=== PATIENT | male | born 1950 | race African-American/Black ===

== ENCOUNTER 2018-07-21 20:17 | Inpatient (IN) ==
[2018-07-21] MEDS ORDERED: SODIUM CHLORIDE 0.9% 1,000 ML IV STA (21:07)
[2018-07-21 21:25] LABS: Hematocrit 43.5 VOL% (42.0-52.0); Hemoglobin 14.5 GM/DL (14.0-18.0); Lymphocytes # 0.1 10*3/uL (1.4-4.0); Lymphocytes % 72.2 % (21.2-54.2); Mean Corpuscular HGB Conc 33.3 GM/DL (32-36); Mean Corpuscular Hemoglobin 28 PG (27-34); Mean Corpuscular Volume 82.7 FL (87-102); Mean Platelet Volume 12.6 FL (9.6-12.0); Monocytes % 11.1 % (1.7-12.7); Neutrophils % 16.7 % (38.7-73.9); Red Blood Count 5.26 MC/CUMM (3.8-5.5); Red Cell Distribution Width 13.4 % (9.3-17.3)
[2018-07-21 21:29] LABS: White Blood Count 0.2 T/CUMM (4-12)
[2018-07-21 21:30] LABS: Platelet Count 26 T/CUMM (130-400)
[2018-07-21 21:31] LABS: INR 1.6; PT Patient Result 16.4 SECS
[2018-07-21 21:48] LABS: Lactic Acid 7.6 MMOL/L (0.4-2.0)
[2018-07-21 21:51] LABS: Alanine Aminotransferase 30 U/L (16-61); Albumin 1.8 G/DL (3.4-5.0); Alkaline Phosphatase 40 U/L (45-117); Aspartate Amino Transferase 23 U/L (0-37); Blood Urea Nitrogen 37 MG/DL (7-18); Calcium 7.5 MG/DL (8.5-10.1); Glucose 140 MG/DL (74-106); Osmolality,Calculated 289.4 MOS/KG (273-304); Potassium 2.9 MMOL/L (3.5-5.1); Sodium 140 MMOL/L (136-145); Total Protein 4.9 G/DL (6.4-8.3)
[2018-07-21 21:52] LABS: Troponin I 0.389 NG/ML (0.00-0.045)
[2018-07-21 22:22] LABS: Apearance,Urine CLOUDY (Clear); Bacteria,Urine Many /HPF (Few); Bilirubin,Urine Negative (Negative); Blood, Urine Small mg/dL (Negative); Glucose,Urine (UA) 50 mg/dL (Negative); Ketones,Urine Negative (Negative); Nitrite,Urine Negative (Negative); Protein,Urine 30 MG/DL; Squamous Epithelial Cell,Urine Occasional /HPF (0-10); Urine Color Amber (Yellow); Urine Specific Gravity 1.015 (1.001-1.035); Urine Urobilinogen < 2.0 EU/DL (0.2-1.0)
[2018-07-21] MEDS ORDERED: POTASSIUM CHLORIDE 20 MEQ TABLET PO STA (22:29)
[2018-07-21 22:30] LABS: Anisocytosis 1+; Lymphocytes 67 % (20-55); Poikilocytosis 1+; Total Cells Counted 100
[2018-07-21] MEDS ORDERED: SODIUM CHLORIDE 0.9% 1,000 ML IV ONE (22:30)
[2018-07-21 22:31] LABS: Platelet Estimate Decreased
[2018-07-21] MEDS ORDERED: FILGRASTIM-SNDZ 480 MCG/0.8 ML SYRINGE SUBCUT ONE (22:33)
[2018-07-21] MEDS ORDERED: VANCOMYCIN INJ 1,000 MG in SODIUM CHLORIDE 0.9% 250 ML IV SCH (23:00)
[2018-07-22 00:34] LABS: Lactic Acid 3.9 MMOL/L (0.4-2.0)
[2018-07-22] MEDS: SODIUM CHLORIDE 0.9% 1,000 ML IV SCH ×5 (00:50→21:42)
[2018-07-22] MEDS ORDERED: ALBUTEROL 2.5 MG/3 ML NEB RESP TX PRN (01:17)
[2018-07-22] MEDS ORDERED: ONDANSETRON 4 MG/2 ML VIAL IV PRN (01:17)
[2018-07-22] MEDS ORDERED: ALBUTEROL/IPRATROPIUM 3 ML NEB RESP TX PRN (01:17)
[2018-07-22] MEDS ORDERED: ACETAMINOPHEN 325 MG TABLET PO PRN (01:17)
[2018-07-22 03:23] LABS: Hematocrit 37.8 VOL% (42.0-52.0); Hemoglobin 12.8 GM/DL (14.0-18.0); Lymphocytes # 0.1 10*3/uL (1.4-4.0); Lymphocytes % 66.7 % (21.2-54.2); Mean Corpuscular HGB Conc 33.9 GM/DL (32-36); Mean Corpuscular Hemoglobin 28 PG (27-34); Mean Corpuscular Volume 83.1 FL (87-102); Mean Platelet Volume 13.5 FL (9.6-12.0); Monocytes % 8.3 % (1.7-12.7); Red Blood Count 4.55 MC/CUMM (3.8-5.5); Red Cell Distribution Width 13.2 % (9.3-17.3)
[2018-07-22 03:24] LABS: Albumin 1.4 G/DL (3.4-5.0); Bilirubin,Total 0.4 MG/DL (0.2-1.0); Calcium 6.2 MG/DL (8.5-10.1); Osmolality,Calculated 294.8 MOS/KG (273-304); Potassium 2.9 MMOL/L (3.5-5.1); Total Protein 4.1 G/DL (6.4-8.3)
[2018-07-22 03:27] LABS: White Blood Count 0.1 T/CUMM (4-12)
[2018-07-22 03:28] LABS: Platelet Count 18 T/CUMM (130-400)
[2018-07-22 03:41] LABS: Lactic Acid 3.1 MMOL/L (0.4-2.0)
[2018-07-22 05:37] LABS: Lymphocytes 80 % (20-55); Total Cells Counted 100
[2018-07-22 05:38] LABS: Anisocytosis 1+; Platelet Estimate Decreased; Poikilocytosis 1+
[2018-07-22] MEDS ORDERED: SODIUM CHLORIDE 0.9% 500 ML IV ONE (06:03)
[2018-07-22] MEDS ORDERED: NOREPINEPHRINE 4 MG/4 ML VIAL IV ONE (07:27)
[2018-07-22] MEDS: NOREPINEPHRINE 8 MG in SODIUM CHLORIDE 0.9% 242 ML IV PRN ×3 (07:42→23:41)
[2018-07-22] MEDS ORDERED: PROPOFOL 200 MG/20 ML VIAL IV ONE (10:13)
[2018-07-22] MEDS ORDERED: PROPOFOL 1,000 MG/100 ML BOTTLE IV ONE (10:13)
[2018-07-22] MEDS ORDERED: SUCCINYLCHOLINE 200 MG/10 ML VIAL ONE (10:14)
[2018-07-22] MEDS ORDERED: SODIUM CHLORIDE 0.9% 1,000 ML IV ONE (10:33)
[2018-07-22] MEDS ORDERED: SODIUM CHLORIDE 0.9% 1,000 ML IV PRN (10:35)
[2018-07-22] MEDS ORDERED: FLUCONAZOLE INJ 200 MG in PREMIX 1 EACH IV SCH (11:00)
[2018-07-22] MEDS ORDERED: PROPOFOL 1,000 MG/100 ML BOTTLE IV SCH (11:00)
[2018-07-22 11:21] LABS: ABG Base Excess -11.6 MMOL/L (-2.5-2.5); ABG HCO3 15.5 MMOL/L (20-26); ABG Oxygen Saturation 99.3 % (95-100); ABG PCO2 30.1 MM HG (35-48); ABG PH 7.279 (7.35-7.45); ABG TCO2 12.6 MMOL/L (23-27)
[2018-07-22] MEDS ORDERED: FILGRASTIM-SNDZ 480 MCG/0.8 ML SYRINGE SUBCUT SCH (12:00)
[2018-07-22 12:18] LABS: Apearance,Urine CLOUDY (Clear); Bacteria,Urine Many /HPF (Few); Bilirubin,Urine Negative (Negative); Blood, Urine Large mg/dL (Negative); Glucose,Urine (UA) Negative (Negative); Ketones,Urine Negative (Negative); Nitrite,Urine Negative (Negative); Protein,Urine 100 MG/DL; RBC,Urine 22 /HPF (0-4); Sperm,Urine Many /HPF (Negative); Urine Color Yellow (Yellow); Urine Specific Gravity 1.019 (1.001-1.035); Urine Urobilinogen < 2.0 EU/DL (0.2-1.0); WBC,Urine 46 /HPF (0-6)
[2018-07-22] MEDS ORDERED: LEVOFLOXACIN INJ 500 MG in PREMIX 1 EACH IV SCH (12:30)
[2018-07-22] MEDS ORDERED: PIPERACILLIN/TAZOBACTAM 3,375 MG in SODIUM CHLORIDE 0.9% 100 ML IV SCH ×2 (14:00)
[2018-07-22] MEDS: MEROPENEM 1,000 MG in SODIUM CHLORIDE 0.9% 100 ML IV SCH ×2 (14:25→22:11)
[2018-07-22] MEDS: HYDROCORTISONE 100 MG VIAL IV SCH ×3 (14:54→22:11)
[2018-07-22] MEDS ORDERED: PANTOPRAZOLE 40 MG VIAL IV SCH (16:00)
[2018-07-22 16:13] LABS: Lactic Acid 3.2 MMOL/L (0.4-2.0)
[2018-07-22] MEDS: POTASSIUM CHLORIDE 20 MEQ/15 ML UDCUP PER TUBE SCH ×3 (18:11→23:42)
[2018-07-23] MEDS ORDERED: DEXTROSE 50% 25 GM/50 ML VIAL IV ONE ×2 (00:12→00:34)
[2018-07-23] MEDS ORDERED: AMIODARONE 450 MG/9 ML VIAL IV ONE (00:16)
[2018-07-23 04:06] VITALS: BP 125/72
[2018-07-23] MEDS ORDERED: VANCOMYCIN INJ 1,000 MG in SODIUM CHLORIDE 0.9% 250 ML IV SCH (12:00)
== END 2018-07-23 00:42 | disposition expired | DRG 871 ==
LOC: N.ED 20:17 → N.EDINP 07-22 00:38 → N.CC 07-22 01:15
PROVIDERS: ADMIT Internal Medicine; ATTEND Internal Medicine